=== PATIENT | male | born 1980 | race Two or more races ===

== ENCOUNTER 2018-06-09 01:28 | Emergency (ER) | payer SELFPAY ==
[~2018-06-09] VITALS: Ht 165.1 cm; Wt 69.4 kg
[2018-06-09 02:02] VITALS: BP 161/106
[2018-06-09] MEDS ORDERED: LIDOCAINE /MPF 1% VIAL 5 ML VIAL ONE ×2 (02:55→03:17)
[2018-06-09] MEDS ORDERED: LIDOCAINE HCL/PF 1% 30 ML VIAL TP ONE (03:00)
[2018-06-09] MEDS ORDERED: HYDROCODONE/APAP 5/325MG 1 EACH TABLET PO ONE (04:00)
[2018-06-09] MEDS ORDERED: CLINDAMYCIN HCL 150 MG CAPSULE PO ONE (04:00)
== END 2018-06-09 03:51 | disposition home or self-care (01) ==
LOC: ER 01:38
DX: H60.02 Abscess of left external ear (principal); F17.210 Nicotine dependence, cigarettes, uncomplicated
CPT/HCPCS: 69000; 99284; A4606; A6402 ×2; A6407; J3490 ×3

== ENCOUNTER 2018-06-11 03:31 | Emergency (ER) | payer SELFPAY ==
[~2018-06-11] VITALS: Ht 165.1 cm; Wt 69.4 kg
[2018-06-11 03:35] VITALS: BP 147/97
== END 2018-06-11 03:49 | disposition home or self-care (01) ==
LOC: ER 03:33
DX: Z48.01 Encounter for change or removal of surgical wound dressing (principal); F17.210 Nicotine dependence, cigarettes, uncomplicated
CPT/HCPCS: Z7502